=== PATIENT | male | born 1980 | race African-American/Black ===

== ENCOUNTER 2018-07-11 11:16 | Emergency (ER) | payer BC ==
[~2018-07-11] VITALS: Ht 188 cm; Wt 127.0 kg
[2018-07-11 11:25] VITALS: BP 137/72
--- NOTE | 2018-07-11 11:42 | PHYS DOC ---
Adult General Chief Complaint Chief Complaint: KNEE INJURY [facility] HPI Patient is a 37 year old male presented to ER today for evaluation of right knee pain and swelling after he injured it playing basketball two days ago. Patient said he twisted. He complaint of pain in his right knee when he walks or put any pressure on his right leg. He denies any previous injury to her right knee. Review of Systems Review of Systems Constitutional: Denies fever or chills [] Eyes: Denies change in visual acuity, redness, or eye pain [] HENT: Denies nasal congestion or sore throat [] Respiratory: Denies cough or shortness of breath [] Cardiovascular: No additional information not addressed in HPI [] GI: Denies abdominal pain, nausea, vomiting, bloody stools or diarrhea [] : Denies dysuria or hematuria [] Musculoskeletal: POSITIVE FOR RIGHT KNEE PAIN AND SWELLING. Integument: Denies rash or skin lesions [] Neurologic: Denies headache, focal weakness or sensory changes [] Endocrine: Denies polyuria or polydipsia [] All other systems were reviewed and found to be within normal limits, except as documented in this note. Allergies Allergies Allergies Coded Allergies Type Severity Reaction Last Updated Verified shellfish derived Allergy Severe Anaphylaxis 07/11/18 Yes Physical Exam Physical Exam Constitutional: Well developed, well nourished, no acute distress, non-toxic appearance. [] HENT: Normocephalic, atraumatic, bilateral external ears normal, oropharynx moist, no oral exudates, nose normal. [] Eyes: PERRLA, EOMI, conjunctiva normal, no discharge. [] Neck: Normal range of motion, no tenderness, supple, no stridor. [] Cardiovascular:Heart rate regular rhythm, no murmur [] Lungs & Thorax: Bilateral breath sounds clear to auscultation [] Abdomen: Bowel sounds normal, soft, no tenderness, no masses, no pulsatile masses. [] Skin: Warm, dry, no erythema, no rash. [] Back: No tenderness, no CVA tenderness. [] Extremities: Right knee is tender with swelling. No erythema. Right knee joint is stable. Neurologic: Alert and oriented X 3, normal motor function, normal sensory function, no focal deficits noted. [] Psychologic: Affect normal, judgement normal, mood normal. [] Current Patient Data Vital Signs Vital Signs Date Time Temp Pulse Resp B/P (MAP) Pulse Ox O2 Delivery O2 Flow Rate FiO2 07/11/18 11:25 98.7 95 18 137/72 (93) 97 Room Air 98.7 EKG EKG [] Radiology/Procedures Radiology/Procedures []IMAGING REPORT Signed PATIENT: DIGNA PALM ACCOUNT: [id number] : 1980 LOCATION: ER AGE: 37 SEX: M EXAM STATUS: REG ER ORD. PHYSICIAN: KYLE AKERS DO REASON: right knee pain, swelling after twisting it two days ago PROCEDURE: KNEE RIGHT 3V EXAM: Right knee, 3 views. HISTORY: Twisting injury. COMPARISON: None. FINDINGS: 3 views of the right knee are obtained. There is no fracture, dislocation or subluxation. There is minimal lateral compartment spurring. There is a small suprapatellar effusion. IMPRESSION: 1. Small right knee effusion. 2. Minimal right knee osteoarthritis. Electronically signed by: Mel Radford MD (07/11/2018 12:21 PM) [facility] DICTATED and SIGNED BY: MEL RADFORD MD DATE: 07/11/18 1221 Course & Med Decision Making Course & Med Decision Making Pertinent Labs and Imaging studies reviewed. (See chart for details) [] Dragon Disclaimer Dragon Disclaimer This electronic medical record was generated, in whole or in part, using a voice recognition dictation system. Departure Departure Impression: Primary Impression: Sprain of right knee Disposition: HOME, SELF-CARE Condition: STABLE Referrals: MUNDO MARR MD please call this orthopedic surgeon for further evaluation next week. Patient Instructions: Knee Sprain Scripts Tramadol Hcl (TRAMADOL HCL) 50 Mg Tablet 50 MG PO Q6HRS PRN for PAIN, #20 TAB Prov: KYLE AKERS DO 07/11/18 KYLE AKERS DO Jul 11, 2018 11:42
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
[2018-07-11] MEDS ORDERED: TRAM50TA PO (12:36)
== END 2018-07-11 13:00 | disposition home or self-care (01) ==
LOC: ER 11:16
DX: S83.8X1A Sprain of other specified parts of right knee, initial encounter (principal); Z91.013 Allergy to seafood; X50.1XXA Overexertion from prolonged static or awkward postures, initial encounter; Y93.67 Activity, basketball; Y92.89 Other specified places as the place of occurrence of the external cause; Y99.8 Other external cause status
CPT/HCPCS: 73562; 99283

== ENCOUNTER 2019-12-22 18:05 | Emergency (ER) | payer OTHER, BC ==
[~2019-12-22] VITALS: Ht 188 cm; Wt 148.9 kg
[~2019-12-22 18:05] MED LIST: TRAM50TA PO
[2019-12-22 18:20] VITALS: BP 148/85
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
[2019-12-22] MEDS ORDERED: HYDR-3164 PO (20:03)
[2019-12-22] MEDS ORDERED: ORPH100T PO (20:03)
[2019-12-22] MEDS ORDERED: DICL50TA4 PO (20:03)
== END 2019-12-22 20:33 | disposition home or self-care (01) ==
LOC: ER 18:05
DX: S52.124A Nondisplaced fracture of head of right radius, initial encounter for closed fracture (principal); S13.9XXA Sprain of joints and ligaments of unspecified parts of neck, initial encounter; S39.012A Strain of muscle, fascia and tendon of lower back, initial encounter; F17.200 Nicotine dependence, unspecified, uncomplicated; Z91.013 Allergy to seafood; V49.9XXA Car occupant (driver) (passenger) injured in unspecified traffic accident, initial encounter; Y92.488 Other paved roadways as the place of occurrence of the external cause; Y93.89 Activity, other specified; Y99.8 Other external cause status
CPT/HCPCS: 29105; 29505; 72040; 72100; 73080; 99284; A4565